=== PATIENT | male | born 1985 | race Two or more races ===

== ENCOUNTER 2021-03-21 22:21 | Emergency (ER) | payer OTHER ==
[~2021-03-21 22:21] MED LIST: LIDOCAINE PATCH REMOVAL MC SCH
[2021-03-21 22:28] VITALS: BP 150/79; PULSE 95; TEMP 98.4; BMI 25.7
[2021-03-21] MEDS ORDERED: LIDOCAINE 5% TOPICAL PATCH TP ONE (23:23)
[2021-03-21] MEDS ORDERED: KETOROLAC TROMETHAMINE 30 MG/1 ML VIAL IM ONE (23:23)
[2021-03-21] MEDS ORDERED: diazePAM 5 MG TABLET PO ONE (23:24)
[2021-03-21] MEDS ORDERED: diazePAM 5 MG TABLET ONE (23:34)
[2021-03-21] MEDS ORDERED: KETOROLAC TROMETHAMINE 30 MG/1 ML VIAL ONE (23:34)
[2021-03-21] MEDS ORDERED: LIDOCAINE 5% TOPICAL PATCH ONE (23:34)
== END 2021-03-22 00:02 | disposition home or self-care (01) ==
LOC: JER 22:21
PROC: 3E0233Z Introduction of Anti-inflammatory into Muscle, Percutaneous Approach (ICD-10-PCS; principal; 2021-03-21)
DX: M54.5 Low back pain (principal); S16.1XXA Strain of muscle, fascia and tendon at neck level, initial encounter
CPT/HCPCS: 99284-25